=== PATIENT | male | born 1960 | race Caucasian/White ===

== ENCOUNTER 2019-02-12 10:33 | Emergency (ER) | payer SELFPAY ==
[~2019-02-12] VITALS: Ht 167.6 cm; Wt 86.2 kg
[2019-02-12 10:39] VITALS: Ht 167.6 cm; Wt 86.2 kg
[2019-02-12 11:16] LABS: BASOPHIL % 0.7 % (0-2); PLATELET COUNT 167 x10^3mcL (130-400)
[2019-02-12 11:32] LABS: ALKALINE PHOSPHATASE 130 U/L (46-116); ALT/SGPT 28 U/L (16-63); AMYLASE 77 U/L (25-115); AST/SGOT 24 U/L (15-37); BILIRUBIN TOTAL 0.37 mg/dL (0.20-1.00); CALCIUM 8.3 mg/dL (8.5-10.1); CHLORIDE SERUM 108 mmol/L (98-107); GLUCOSE SERUM 234 mg/dL (74-106); LIPASE 504 IU/L (73-393); POTASSIUM SERUM 3.6 mmol/L (3.5-5.1); SODIUM SERUM 142 mmol/L (136-145); TOTAL PROTEIN, SERUM 6.9 g/dL (6.4-8.2)
[2019-02-12 11:34] LABS: ALBUMIN 2.1 g/dL (3.4-5.0); CREATININE SERUM 4.6 mg/dL (0.7-1.3); GFR1 14 mL/min
[2019-02-12 13:05] VITALS: BP 163/145
[2019-02-12 14:34] VITALS: BP 167/96
== END 2019-02-12 14:34 | disposition short-term general hospital (02) ==
LOC: ED 10:33
PROVIDERS: Emergency Medicine
DX: I61.4 Nontraumatic intracerebral hemorrhage in cerebellum (principal); I16.9 Hypertensive crisis, unspecified; E11.9 Type 2 diabetes mellitus without complications
CPT/HCPCS: 36600; 82962; G0480; J0330; J0360; J0780; J1953; J2310; J2704; J3490; J7030; Q0092